=== PATIENT | female | born 1990 | race Two or more races ===

== ENCOUNTER 2018-08-13 08:56 | Emergency (ER) | payer MEDICAID | END 2018-08-13 12:37 | disposition home or self-care (01) | LOC: E/R 08:56 | DX: H66.91 Otitis media, unspecified, right ear (principal) | CPT/HCPCS: 99283; Z7502 ==

== ENCOUNTER 2018-09-06 18:18 | Emergency (ER) | payer MEDICAID ==
[2018-09-06] MEDS: IBUPROFEN 600 MG TAB PO (19:46)
== END 2018-09-06 21:43 | disposition home or self-care (01) ==
LOC: FTE 18:18
DX: H92.01 Otalgia, right ear (principal)
CPT/HCPCS: 70450; 70480; 99284-25

== ENCOUNTER 2019-01-22 17:44 | Emergency (ER) | payer OTHER, MEDICAID | END 2019-01-22 19:45 | disposition home or self-care (01) | LOC: FTE 17:44 | DX: R07.0 Pain in throat (principal); Z00.00 Encounter for general adult medical examination without abnormal findings | CPT/HCPCS: 87880; 99283 ==